=== PATIENT | male | born 1965 | race Hispanic/Latino ===

== ENCOUNTER 2017-07-16 13:32 | Emergency (ER) | payer OTHER ==
[~2017-07-16] VITALS: Ht 177.8 cm; Wt 99.8 kg
[2017-07-16 14:58] LABS: BILIRUBIN,URINE NEGATIVE (NEGATIVE); CLARITY,URINE SL CLOUDY (CLEAR); COLOR,URINE YELLOW (YELLOW); KETONES,URINE NEGATIVE (NEGATIVE); LEUKOCYTE ESTERASE ,URINE NEGATIVE (NEGATIVE); NITRITE,URINE NEGATIVE (NEGATIVE); PROTEIN,URINE DIPSTICK 1+ (NEGATIVE); URINE UROBILINOGEN 1 mg/dL (0.2 - 1)
[2017-07-16] MEDS ORDERED: ACETAMINOPHEN 325 MG TAB PO ONE (15:00)
[2017-07-16 15:06] LABS: BASOPHILS # (AUTO) 0.1 (0.0-0.1); BASOPHILS % 0.7 % (0.0-1.0); EOSINOPHILS # (AUTO) 0.1 (0.0-0.4); EOSINOPHILS % 0.6 % (0.0-6.0); HEMOGLOBIN 13.7 g/dL (14.0-18.0); LYMPHOCYTES # (AUTO) 1.7 (1.0-3.2); MEAN CORPUSCULAR HEMOGLOBIN 32.6 pg (28-32); MEAN CORPUSCULAR HGB CONC 33.4 g/dL (31-35); MEAN CORPUSCULAR VOLUME 97.6 fL (81-99); MONOCYTES % 6.8 % (4.4-11.3); NEUTROPHILS # (AUTO) 11.3 (2.1-6.9); NEUTROPHILS % 79.4 % (38.7-80.0); PLATELET COUNT 222 x10e3/uL (140-360); RED CELL DISTRIBUTION WIDTH 12.4 % (11.7-14.4)
[2017-07-16 15:10] LABS: BACTERIA,URINE RARE /HPF
[2017-07-16 15:11] LABS: MUCUS,URINE FEW (RARE)
[2017-07-16 15:25] LABS: ALANINE AMINOTRANSFERASE 49 IU/L (0-55); ALBUMIN 4.1 g/dL (3.5-5.0); ANION GAP 13.1 mmol/L (8-16); BLOOD UREA NITROGEN 16 mg/dL (7-26); BUN/CREATININE RATIO 13 (6-25); CALCIUM 9.7 mg/dL (8.4-10.2); CARBON DIOXIDE 27 mmol/L (22-29); CHLORIDE 102 mmol/L (98-107); CREATININE, SERUM 1.24 mg/dL (0.72-1.25); EST GLOMERULAR FILTRATION RATE > 60 ML/MIN (60-); GLUCOSE 108 mg/dL (74-118); POTASSIUM 4.1 mmol/L (3.5-5.1); SODIUM 138 mmol/L (136-145)
[2017-07-16 15:26] LABS: ALBUMIN/GLOBULIN RATIO 1.1 (0.8-2.0); ALKALINE PHOSPHATASE 122 IU/L (40-150)
[2017-07-16] MEDS ORDERED: LIDOCAINE JELLY 2% 10ML URO-JET TOP ONE (16:00)
[2017-07-16] MEDS ORDERED: CEFTRIAXONE SOD 1 GM VIAL IV ONE (16:00)
[2017-07-16 17:23] VITALS: BP 126/94
== END 2017-07-16 17:33 | disposition home or self-care (01) ==
LOC: ER 13:32
DX: R33.9 Retention of urine, unspecified (principal); N30.90 Cystitis, unspecified without hematuria; I10 Essential (primary) hypertension; E11.9 Type 2 diabetes mellitus without complications; E78.00 Pure hypercholesterolemia, unspecified
CPT/HCPCS: 36415; 51702; 80053; 81001; 83605; 85025; 99283; J0696

== ENCOUNTER 2017-07-17 12:49 | Emergency (ER) | payer OTHER ==
[~2017-07-17] VITALS: Ht 177.8 cm; Wt 99.8 kg
--- OUTSIDE RECORDS SUMMARY | 2017-07-17 12:51 | XMS REPORT | Continuity of Care Document ---
Author Author [facility] Organization [facility] Address [address] [place] [address] Phone Unavailable Care Team Providers Care Board Certified Family Physician Name Role Phone EMEKA DAY MD PCP Insurance Providers Guarantor Luis Denny Address [address] [place] [address] Email NONE [facility] Policy Number [id number] Subscriber's Name Luis Denny Relationship 18 Self / Same As Patient Advance Directives Directive Response Recorded Date/Time Does the patient have an advance directive? No 07/16/17 1:31pm If yes, is advance directive on file with [facility]? No 07/16/17 1:31pm If not on file with [facility] will patient provide a copy? No 07/16/17 1:31pm Do you have a Directive to Physician? No 07/16/17 1:31pm Do you have a Medical Power of Old Testament Professor? No 07/16/17 1:31pm Do you have an out of hospital Do Not Resuscitate Order? No 07/16/17 1:31pm Do you have any special needs we should be aware of? No 07/16/17 1:31pm Do you have a support person here with you today? Yes 07/16/17 1:31pm Did patient receive Notice of Privacy Practices? Yes 07/16/17 1:31pm Did patient receive patient rights and responsibilities? Yes 07/16/17 1:31pm Problems No problem information available. Medications No medication information available. Social History Smoking Status Start Date Stop Date Never Smoker Hospital Discharge Instructions No hospital discharge instruction information available. Plan of Care Discharge Date 07/16/17 5:33pm Disposition HOME, SELF-CARE Condition at Discharge Stable Forms Provided Work/School Excuse Prescriptions See Medication Section Referrals NEYMAR ALONSO MD Order Date: Call for an appointment Address: [address] [place] [id number] Additional Instructions/Education TAKE MEDICATION PRESCRIBED. FOLLOW UP WITH UROLOGIST DR. ALONSO Functional Status No functional status information available. Allergies, Adverse Reactions, Alerts No allergy information available. Immunizations No immunization information available. Vital Signs Acute Vital Signs Vital Response Date/Time Temperature (Fahrenheit) 99.2 degrees F (97.6 - 99.5) 07/16/2017 5:23pm Pulse Pulse Rate (adult) 75 bpm (60 - 90) 07/16/2017 5:23pm Respiratory Rate 16 bpm (12 - 24) 07/16/2017 5:23pm Blood Pressure 126/94 mm Hg 07/16/2017 5:23pm Height 5 ft 10 in 07/16/2017 1:38pm Weight 220 lb 07/16/2017 1:38pm Body Mass Index 31.6 kg/m^2 07/16/2017 1:38pm Results Laboratory Results Test Name Result Units Flags Reference Collection Date/Time Result Date/ Time Comments White Blood Count 14.28 x10e3/uL H 4.8-10.8 07/16/2017 2:50pm 2017 3:06pm Red Blood Count 4.20 x10e6/uL L 4.3-5.7 07/16/2017 2:50pm 07/16/2017 3: 06pm Hemoglobin 13.7 g/dL L 14.0-18.0 07/16/2017 2:50pm 07/16/2017 3:06pm Hematocrit 41.0 % 38.2-49.6 07/16/2017 2:50pm 07/16/2017 3:06pm Mean Corpuscular Volume 97.6 fL 81-99 07/16/2017 2:50pm 07/16/2017 3: 06pm Mean Corpuscular Hemoglobin 32.6 pg H 28-32 07/16/2017 2:50pm 2017 3:06pm Mean Corpuscular Hemoglobin Concent 33.4 g/dL 31-35 07/16/2017 2:50pm 07/16/2017 3:06pm Red Cell Distribution Width 12.4 % 11.7-14.4 07/16/2017 2:50pm 2017 3:06pm Platelet Count 222 x10e3/uL 140-360 07/16/2017 2:50pm 07/16/2017 3: 06pm Neutrophils (%) (Auto) 79.4 % 38.7-80.0 07/16/2017 2:50pm 07/16/2017 3: 06pm Lymphocytes (%) (Auto) 12.0 % L 18.0-39.1 07/16/2017 2:50pm 07/16/2017 3 :06pm Monocytes (%) (Auto) 6.8 % 4.4-11.3 07/16/2017 2:50pm 07/16/2017 3: 06pm Eosinophils (%) (Auto) 0.6 % 0.0-6.0 07/16/2017 2:50pm 07/16/2017 3: 06pm Basophils (%) (Auto) 0.7 % 0.0-1.0 07/16/2017 2:50pm 07/16/2017 3:06pm IM GRANULOCYTES % 0.5 % 0.0-1.0 07/16/2017 2:50pm 07/16/2017 3:06pm Neutrophils # (Auto) 11.3 H 2.1-6.9 07/16/2017 2:50pm 07/16/2017 3: 06pm Lymphocytes # (Auto) 1.7 1.0-3.2 07/16/2017 2:50pm 07/16/2017 3:06pm Monocytes # (Auto) 1.0 H 0.2-0.8 07/16/2017 2:50pm 07/16/2017 3:06pm Eosinophils # (Auto) 0.1 0.0-0.4 07/16/2017 2:50pm 07/16/2017 3:06pm Basophils # (Auto) 0.1 0.0-0.1 07/16/2017 2:50pm 07/16/2017 3:06pm Absolute Immature Granulocyte (auto 0.07 x10e3/uL 0-0.1 07/16/2017 2: 50pm 07/16/2017 3:06pm Urine Color YELLOW YELLOW 07/16/2017 1:45pm 07/16/2017 2:58pm Urine Clarity SL CLOUDY H CLEAR 07/16/2017 1:45pm 07/16/2017 2:58pm Urine Specific Morrison 1.025 1.010-1.025 07/16/2017 1:45pm 2017 2:58pm Urine pH 6 5 - 7 07/16/2017 1:45pm 07/16/2017 2:58pm Urine Leukocyte Esterase NEGATIVE NEGATIVE 07/16/2017 1:45pm 2017 2:58pm Urine Nitrite NEGATIVE NEGATIVE 07/16/2017 1:45pm 07/16/2017 2:58pm Urine Protein 1+ H NEGATIVE 07/16/2017 1:45pm 07/16/2017 2:58pm Urine Glucose (UA) NEGATIVE NEGATIVE 07/16/2017 1:45pm 07/16/2017 2: 58pm Urine Ketones NEGATIVE NEGATIVE 07/16/2017 1:45pm 07/16/2017 2:58pm Urine Urobilinogen 1 mg/dL 0.2 - 1 07/16/2017 1:45pm 07/16/2017 2:58pm Urine Bilirubin NEGATIVE NEGATIVE 07/16/2017 1:45pm 07/16/2017 2: 58pm Urine Blood TRACE H NEGATIVE 07/16/2017 1:45pm 07/16/2017 2:58pm Urine WBC 11-20 /HPF H 0-5 07/16/2017 1:45pm 07/16/2017 3:11pm Urine RBC 6-10 /HPF H 0-5 07/16/2017 1:45pm 07/16/2017 3:11pm Urine Bacteria RARE /HPF NONE 07/16/2017 1:45pm 07/16/2017 3:11pm Urine Epithelial Cells NONE /LPF NONE 07/16/2017 1:45pm 07/16/2017 3: 11pm Urine Mucus FEW H RARE 07/16/2017 1:45pm 07/16/2017 3:11pm Sodium Level 138 mmol/L 136-145 07/16/2017 2:5007/16/2017 3:26pm Potassium Level 4.1 mmol/L 3.5-5.1 07/16/2017 2:50pm 07/16/2017 3:26pm Chloride Level 102 mmol/L 98-107 07/16/2017 2:50pm 07/16/2017 3:26pm Carbon Dioxide Level 27 mmol/L 22-29 07/16/2017 2:50pm 07/16/2017 3: 26pm Anion Gap 13.1 mmol/L 8-16 07/16/2017 2:50pm 07/16/2017 3:26pm Blood Urea Nitrogen 16 mg/dL 7-26 07/16/2017 2:50pm 07/16/2017 3:26pm Creatinine 1.24 mg/dL 0.72-1.25 07/16/2017 2:50pm 07/16/2017 3:26pm BUN/Creatinine Ratio 13 6-25 07/16/2017 2:50pm 07/16/2017 3:26pm Estimat Glomerular Filtration Rate > 60 ML/MIN 60- 07/16/2017 2:50pm 3:26pm Ranges were taken from the National Kidney Disease Education Program and the National [employer] literature. Reference ranges: 60 or greater: Normal 16-59 (for 3 consecutive months): Chronic kidney disease 15 or less: Kidney failure Glucose Level 108 mg/dL 74-118 07/16/2017 2:50pm 07/16/2017 3:26pm Calcium Level 9.7 mg/dL 8.4-10.2 07/16/2017 2:50pm 07/16/2017 3:26pm Lactic Acid Level 8.6 MG/DL 4.5-19.8 07/16/2017 2:5007/16/2017 3: 21pm Total Bilirubin 0.9 mg/dL 0.2-1.2 07/16/2017 2:50pm 07/16/2017 3:26pm Aspartate Amino Transf (AST/SGOT) 33 IU/L 5-34 07/16/2017 2:50pm 2017 3:26pm Alanine Aminotransferase (ALT/SGPT) 49 IU/L 0-55 07/16/2017 2:50pm 05/2017 3:26pm Total Protein 7.9 g/dL 6.5-8.1 07/16/2017 2:50pm 07/16/2017 3:26pm Albumin 4.1 g/dL 3.5-5.0 07/16/2017 2:50pm 07/16/2017 3:26pm Globulin 3.8 g/dL H 2.3-3.5 07/16/2017 2:50pm 07/16/2017 3:26pm Albumin/Globulin Ratio 1.1 0.8-2.0 07/16/2017 2:50pm 07/16/2017 3: 26pm Alkaline Phosphatase 122 IU/L 40-150 07/16/2017 2:50pm 07/16/2017 3: 26pm Procedures No procedure information available. Encounters Encounter Location Arrival/Admit Date Discharge/Depart Date Attending Provider Departed Emergency Room [facility] 07/16/17 1:32pm 5:33pm PINEDA BARROW MD
== END 2017-07-17 16:15 | disposition short-term general hospital (02) ==
LOC: ER 12:49
DX: Z53.21 Procedure and treatment not carried out due to patient leaving prior to being seen by health care provider (principal)

== ENCOUNTER → 2018-07-24 | Day surgery (SDC) | payer OTHER ==
[2018-07-23 15:42] LABS: BASOPHILS # (AUTO) 0.1 (0.0-0.1); BASOPHILS % 1.7 % (0.0-1.0); EOSINOPHILS # (AUTO) 0.5 (0.0-0.4); EOSINOPHILS % 7.1 % (0.0-6.0); HEMATOCRIT 43.7 % (38.2-49.6); HEMOGLOBIN 14.5 g/dL (14.0-18.0); LYMPHOCYTES % 29.9 % (18.0-39.1); MEAN CORPUSCULAR HEMOGLOBIN 32.4 pg (28-32); MEAN CORPUSCULAR HGB CONC 33.2 g/dL (31-35); MEAN CORPUSCULAR VOLUME 97.5 fL (81-99); MONOCYTES # (AUTO) 0.6 (0.2-0.8); MONOCYTES % 9.2 % (4.4-11.3); NEUTROPHILS # (AUTO) 3.4 (2.1-6.9); NEUTROPHILS % 51.8 % (38.7-80.0); PLATELET COUNT 233 x10e3/uL (140-360); RED BLOOD COUNT 4.48 x10e6/uL (4.3-5.7); RED CELL DISTRIBUTION WIDTH 12.1 % (11.7-14.4)
[2018-07-23 15:52] LABS: INR 0.94; PARTIAL THROMBOPLASTIN TIME 23.2 seconds (23.8-35.5); PROTHROMBIN TIME 13.1 seconds (11.9-14.5)
[2018-07-23 15:59] LABS: ANION GAP 11.5 mmol/L (8-16); BLOOD UREA NITROGEN 15 mg/dL (7-26); BUN/CREATININE RATIO 13 (6-25); CARBON DIOXIDE 28 mmol/L (22-29); CHLORIDE 102 mmol/L (98-107); CREATININE, SERUM 1.17 mg/dL (0.72-1.25); EST GLOMERULAR FILTRATION RATE > 60 ML/MIN (60-); GLUCOSE 87 mg/dL (74-118); POTASSIUM 4.5 mmol/L (3.5-5.1); SODIUM 137 mmol/L (136-145)
[~2018-07-24] MED LIST: ATORVASTATIN CA20 MG PO; CLINDAMYCIN 300MG 50 ML IV ONE; FENTANYL CITRATE/PF 100MCG/2 ML INJ ONE; GENTAMICIN 120MG/NS 100ML 100 ML ONE; LIDOCAINE HCL 2% LOCAL INJ 5 ML SDV VIAL INJ ONE; LOSARTAN POTASS25 MG PO; LOVASTATIN40 MG PO; MIDAZOLAM HCL 2 MG/2 ML VIAL ONE; PROPOFOL IV EMULSION 10 MG/ML 20 ML VIAL ONE
[2018-07-24 14:45] VITALS: BP 115/75
--- NOTE | 2018-07-24 16:53 | Diagnostic Imaging Report ---
HISTORY: Elevated PSA TECHNIQUE: Ultrasound guidance was provided to Dr. Brittney Oneill for the purposes of a transrectal biopsy of the prostate gland. FINDINGS: The seminal vesicles are present and unremarkable. The gland size measures 2.6 x 5.4 x 4.8 cm. The volume is 35.3 cc. The peripheral zone is homogeneous without focal nodules. The transition zone demonstrates no discrete mass IMPRESSION: As above. Signed by: Dr. Emil Berger MD on 07/24/2018 4:49 PM
--- NOTE | 2018-07-24 21:42 | Operative Report ---
DATE OF PROCEDURE: 07/24/2018 SURGEON: Carlos Oneill MD PREOPERATIVE DIAGNOSIS: Elevated PSA of 9.9. POSTOPERATIVE DIAGNOSIS: Elevated PSA of 9.9. PROCEDURES: 1. Prostate ultrasound. 2. Ultrasound guidance needle biopsy. 3. Needle biopsy of prostate. ANESTHESIA: General. ESTIMATED BLOOD LOSS: Minimal. COMPLICATIONS: None. INDICATIONS: Mr. Norris is a very pleasant 52-year-old male, who has an elevated PSA up to 9.9. He and I had a long discussion about alternatives, risks, and benefits of doing nothing, prostate ultrasound biopsy. He voiced understanding of the options, of the alternatives, of the risks and the benefits, mostly understanding the risks of pain, bleeding, infection, reoperation, damage to adjacent structures, hemorrhage, PA, stroke, and even . He elected to proceed. PROCEDURE IN DETAIL: After informed consent was obtained, the patient was taken to the operative suite, placed supine on the operating table. He states he was given his enema and taken his antibiotics. He underwent general by the Anesthesia Service, and was placed in left lateral decubitus position. Prostate ultrasound: Utilizing a plethora of lubrication, the transrectal ultrasound probe was inserted anally. Prostate ultrasound was performed revealing normal-appearing seminal vesicles. Some scattered microcalcifications were notable in the mid and right apex. Volume was calculated at 35 mL. IMPRESSION: 1. BPH scattered microcalcifications. 2. Ultrasound guidance. Ultrasound probe was utilized to guide the needle biopsy prostate. 3. Needle biopsy prostate 10 core approach was performed. Prostate biopsies. Minimal bleeding was noted. 4. The patient tolerated the procedure well, was transported to the recovery room in excellent condition. Carlos Oneill MD ES/MODL /[id number]
== END | disposition home or self-care (01) ==
LOC: OR 12:40
PROVIDERS: ATTEND Urology
DX: C61 Malignant neoplasm of prostate (principal); N42.89 Other specified disorders of prostate; N40.1 Benign prostatic hyperplasia with lower urinary tract symptoms; N13.8 Other obstructive and reflux uropathy; R33.8 Other retention of urine; R39.14 Feeling of incomplete bladder emptying; R35.1 Nocturia; N39.0 Urinary tract infection, site not specified; R81 Glycosuria; Z91.19 Patient's noncompliance with other medical treatment and regimen; E66.9 Obesity, unspecified; I10 Essential (primary) hypertension; E78.5 Hyperlipidemia, unspecified; R00.1 Bradycardia, unspecified; Z01.810 Encounter for preprocedural cardiovascular examination; Z01.812 Encounter for preprocedural laboratory examination; Z79.82 Long term (current) use of aspirin; Z68.31 Body mass index [BMI] 31.0-31.9, adult
CPT/HCPCS: 36415; 76872; 76998; 80048; 85025; 85610; 85730; 88305; 93005; J1580; J2001; J2250